=== PATIENT | male | born 1935 | race Caucasian/White ===

== ENCOUNTER 2022-05-14 07:30 | Outpatient (CLI) | payer MEDICARE, SELFPAY | END 2022-05-14 07:31 | disposition home or self-care (01) | LOC: INJ CL 07:33 | PROVIDERS: Visit Provider Family Medicine | DX: M54.16 Radiculopathy, lumbar region (principal); M51.36 Other intervertebral disc degeneration, lumbar region | CPT/HCPCS: 62323; J0702; Q9966 ==

== ENCOUNTER 2024-06-12 07:44 | Outpatient (CLI) | payer MEDICARE, SELFPAY | END 2024-06-12 07:45 | disposition home or self-care (01) | LOC: INJ CL 07:45 | PROVIDERS: Visit Provider Family Medicine | DX: M54.16 Radiculopathy, lumbar region (principal); M51.36 Other intervertebral disc degeneration, lumbar region | CPT/HCPCS: 62323; J0702; Q9966 ==

== ENCOUNTER 2024-09-18 12:28 | Outpatient (CLI) | payer MEDICARE, SELFPAY | END 2024-09-18 12:29 | disposition home or self-care (01) | PROVIDERS: PCP Family Medicine Addiction Medicine; Visit Provider Family Medicine | DX: M54.16 Radiculopathy, lumbar region (principal) | CPT/HCPCS: 64483; J1100; Q9966 ==

== ENCOUNTER 2025-06-25 07:17 | Outpatient (CLI) | payer MEDICARE, BC, SELFPAY | END 2025-06-25 07:18 | disposition home or self-care (01) | PROVIDERS: PCP Family Medicine Addiction Medicine; Visit Provider Family Medicine | DX: M54.16 Radiculopathy, lumbar region (principal); M51.369 Other intervertebral disc degeneration, lumbar region without mention of lumbar back pain or lower extremity pain | CPT/HCPCS: 64483; J1100; Q9966 ==